=== PATIENT | male | born 1965 | race Caucasian/White ===

== ENCOUNTER 2018-11-18 10:39 | Inpatient (IN) ==
[2018-11-18] MEDS ORDERED: 0.9 % SODIUM CHLORIDE 1,000 ML IV ONE (10:47)
[2018-11-18] MEDS ORDERED: HYDROmorphone 2 MG/ML VIAL IV PRN (10:47)
[2018-11-18] MEDS ORDERED: ONDANSETRON 4 MG/2 ML VIAL IV ONE (10:47)
[2018-11-18 11:46] LABS: Basophils # (Auto) 0 K/mcL (0.0-0.3); Basophils % (Auto) 0.6 % (0.0-2.0); Eosinophils # (Auto) 0.3 K/mcL (0.0-0.7); Eosinophils % (Auto) 4.8 % (0.0-7.0); Granulocytes % (Auto) 48.6 % (38.0-78.0); Lymphocytes # (Auto) 2.3 K/mcL (1.5-4.8); Mean Cell Volume 85.4 fL (80.0-100.0); Mean Corpuscular HGB Conc 32.4 g/dL (31.0-36.0); Monocytes # (Auto) 0.6 K/mcL (0.1-0.9); Platelet Count 332 K/mcL (140-440); RBC 5.05 M/mcL (4.50-5.90); Red Cell Distribution Width 13.3 % (11.5-14.5)
--- NOTE | 2018-11-18 11:54 | Emergency Department Note ---
Lower Extremity Injury HPI - General Chief Complaint: Extremity Injury, Lower Stated Complaint: left toe pain Time Seen by Provider: 11/18/18 10:46 Source: patient Mode of arrival: ambulatory Limitations: no limitations - History of Present Illness HPI Narrative: 53-year-old male with left forefoot and great toe redness and swelling since he had surgery on it back in April 2018 or about [address] [place] did the surgery in [place]. Anyways he came in on 11/05/2018 and was evaluated by Dr. Holden-wound site was cultured which showed penicillin sensitive staph. CT scan at that time showed concern for osteomyelitis without abscess. He has been getting wound care by Dr. Monahan-but Dr. Monahan he does not think this is been getting better and so discussed the case with Dr. Valderrama, our sterilization specialist. Concerned that the joint is septic with osteomyelitis he sent him over for evaluation. Patient is not complaining of shortness of breath fever chills nausea vomiting diarrhea. He does have excessive pain redness and swelling. Patient has been using apple cider vinegar soaks with some mild relief. Patient is on Augmentin but does not think this is helping - Related Data Home Medications Medication Instructions Recorded Confirmed Ibuprofen [Motrin] 800 mg PO TIDP PRN 05/28/15 09/28/18 SUMAtriptan SUCCINATE [Imitrex] 50 mg PO PRN PRN 05/28/15 09/28/18 albuterol sulfate HFA 90 90 mcg INHALATION Q4H g 10/29/15 09/28/18 mcg/actuation aerosol inhaler diclofenac 1 % topical gel 2 g TOPICAL QID 10/29/15 09/28/18 ipratropium-albuterol 0.5 mg-3 3 ml INHALATION Q8H 10/29/15 09/28/18 mg(2.5 mg base)/3 mL nebulization soln polyethylene glycol 3350 17 17 g PO ONCE 10/29/15 09/28/18 gram/dose oral powder triamcinolone acetonide 0.1 % 1 applic TOPICAL QDAY 10/29/15 09/28/18 topical cream zolpidem 10 mg tablet 10 mg PO HS 10/29/15 09/28/18 bupropion HCl 75 mg tablet 75 mg PO ONCE tab 09/23/18 09/28/18 fluticasone 50 mcg/actuation 1 inh INHALATION Q12H 09/23/18 09/28/18 blister powder for inhalation hydrocodone 10 mg-acetaminophen 1 - 2 tab PO QID PRN tab 09/23/18 09/28/18 325 mg tablet nortriptyline 10 mg capsule 40 mg PO QHS cap 09/23/18 09/28/18 omeprazole 40 mg capsule,delayed 40 mg PO BID cap 09/23/18 09/28/18 release Previous Rx's Medication Instructions Recorded Amoxicillin 500 mg PO Q12 #40 tab 11/06/18 Allergies Allergy/AdvReac Type Severity Reaction Status Date / Time diphenhydramine Allergy Unknown Unknown Verified 11/18/18 10:42 [From Benadryl] egg Allergy Unknown Unknown Verified 11/18/18 10:42 gabapentin Allergy Unknown Unknown Verified 11/18/18 10:42 topiramate [From Topamax] Allergy Unknown Unknown Verified 11/18/18 10:42 pregabalin [From Lyrica] AdvReac Intermediate Confusion Verified 11/18/18 10:42 BANANAS Allergy Intermediate ITCHY Uncoded 09/23/18 09:32 THROAT Review of Systems All systems ED: reviewed and negative except as stated. Past Medical History - Past Medical History Attestation: Yes: The following information was validated with the patient. 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) VIVEK on CPAP (Chronic) Left anterior shoulder pain (Chronic) Migraine headache (Chronic) Fatty liver (Chronic) Elevated LFTs (Chronic) Eosinophilic esophagitis (Chronic) Allergic rhinitis due to animals (Chronic) Allergic rhinitis due to pollen (Chronic) Osteoarthritis (Chronic) Arthritis of hand (Chronic) Bone spur of right foot (Chronic) Os trigonum (Chronic) Hallux rigidus, acquired (Chronic) Other instability, left ankle (Chronic) 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) Anxiety (Chronic) Other specified conditions influencing health status (Chronic) Benign prostatic hyperplasia with lower urinary tract symptoms (Chronic) Chronic toe pain, left foot (Chronic) Spondylolisthesis, acquired (Chronic) Sciatica (Chronic) Persistent insomnia (Chronic) Anxiety disorder (Chronic) BPH (benign prostatic hypertrophy) with urinary obstruction (Chronic) Family history of diabetes mellitus (Chronic) Decrease in the ability to hear (Chronic) Herpes simplex (Resolved) Loss of teeth (Resolved) Other chest pain (Resolved) Other spondylosis with radiculopathy, lumbar region (Resolved) Severe persistent asthma (Resolved) Shortness of breath (Resolved) Skin lesion (Resolved) Dermatitis, atopic (Inactive) Diverticulosis (Inactive) Hemorrhoids, external (Inactive) LUQ abdominal pain (Inactive) Loss of teeth due to extraction (Inactive 08/14/14) Opioid abuse (Inactive) Opioid dependence (Inactive) Other jail (current) drug therapy (Inactive) Spondylolisthesis (Inactive) Ulcer of left foot (Inactive) Past Surgical History (Last Updated 09/29/18 @ 10:59 by Varsha Rueda) S/P foot surgery, left (Acute) History of hernia surgery (Chronic) History of toe surgery (Chronic ~2018) History of tonsillectomy and adenoidectomy (Chronic) History of umbilical hernia repair (Chronic) Medical history: Reports: other Psychiatric history: Reports: anxiety, depression Surgical history ED: Reports: orthopedic, other - Social History smoking status: Former smoker Alcohol use: Reports: None Drug use: Reports: none Physical Exam Overweight male no acute distress resting comfortably. Normocephalic atraumatic. Conjunctive are clear sclerae nonicteric. No nasal discharge or congestion. Oropharynx pink and moist. Neck is supple without lymphadenopathy thyromegaly. No carotid bruit. Heart is regular rate and rhythm no murmur appreciated. Lungs are clear to auscultation bilaterally without wheezes rales rhonchi or respiratory distress. Exam of the left foot compared to the right shows markedly edematous great toe and forefoot with scarring from surgery. There is erythema as well. It is partially bandaged. I did review the photographs that were showed to me by Dr. Monahan and therefore did not unwrap it further. He is alert oriented able to answer questions appropriately. Limitations: no limitations Course Vital Signs Temperature 97.8 F 11/18/18 10:40 Pulse Rate 77 11/18/18 10:40 Respiratory Rate 18 11/18/18 10:40 Blood Pressure 148/84 11/18/18 10:40 Pulse Oximetry (%) 98 11/18/18 10:40 Temperature 97.8 F 11/18/18 10:40 Pulse Rate 77 11/18/18 10:40 Respiratory Rate 18 11/18/18 10:40 Blood Pressure 148/84 11/18/18 10:40 Pulse Oximetry (%) 98 11/18/18 10:40 Extremity Injury, Lower - Lab Data Lab results reviewed: Yes I reviewed the patient's lab results. Result diagrams: 11/18/18 10:59 11/18/18 10:59 Lab Results 11/18/18 11/18/18 11/18/18 Range/Units 10:59 10:59 10:59 WBC 6.3 (4.5-11.0) K/mcL RBC 5.05 (4.50-5.90) M/mcL Hgb 14.0 (13.5-16.5) g/dL Hct 43.1 (41.0-55.0) % MCV 85.4 (80.0-100.0) fL MCH 27.7 (26.0-34.0) pg MCHC 32.4 (31.0-36.0) g/dL RDW 13.3 (11.5-14.5) % Plt Count 332 (140-440) K/mcL MPV 7.7 (7.4-10.4) fL Gran % 48.6 (38.0-78.0) % Lymph % (Auto) 37.0 (15.5-49.0) % Tucker % (Auto) 9.0 (1.0-12.0) % Eos % (Auto) 4.8 (0.0-7.0) % Baso % (Auto) 0.6 (0.0-2.0) % Gran # 3.1 (1.8-8.0) K/mcL Lymph # (Auto) 2.3 (1.5-4.8) K/mcL Tucker # (Auto) 0.6 (0.1-0.9) K/mcL Eos # (Auto) 0.3 (0.0-0.7) K/mcL Baso # (Auto) 0 (0.0-0.3) K/mcL VBG Lactic Acid 1.1 (0.5-2.0) mmol/L Sodium 138 (133-145) mmol/L Potassium 4.1 (3.3-5.1) mmol/L Chloride 102 (96-108) mmol/L Carbon Dioxide 26 (22-30) mmol/L Anion Gap 10.0 (8-16) BUN 15 (6-20) mg/dl Creatinine 1.0 (0.7-1.2) mg/dl GFR Calculation 85 Glucose 108 H (70-105) mg/dL Calcium 9.8 (8.6-10.4) mg/dl Total Bilirubin 0.3 (0.0-1.0) mg/dL AST 19 (0-37) U/l ALT 23 (0-40) U/l Alkaline Phosphatase 115 (39-117) U/L Total Protein 7.7 (5.9-8.4) gm/dL Albumin 4.4 (3.2-5.2) gm/dL Globulin 3.3 (2.2-3.7) gm/dL Albumin/Globulin Ratio 1.3 (1.0-2.3) Urine Color Urine Appearance Urine pH (5.0-9.0) Ur Specific Hudson (1.000-1.035) Urine Protein (NEG) mg/dL Urine Glucose (UA) (NEG) mg/dL Urine Ketones (NEG) mg/dL Urine Occult Blood (<0.03) mg/dL Urine Nitrate (NEG) Urine Bilirubin (NEG) mg/dL Urine Urobilinogen (NEG) mg/dL Ur Leukocyte Esterase (NEG) /uL Ur Culture Indicated? 11/18/18 Range/Units 11:39 WBC (4.5-11.0) K/mcL RBC (4.50-5.90) M/mcL Hgb (13.5-16.5) g/dL Hct (41.0-55.0) % MCV (80.0-100.0) fL MCH (26.0-34.0) pg MCHC (31.0-36.0) g/dL RDW (11.5-14.5) % Plt Count (140-440) K/mcL MPV (7.4-10.4) fL Gran % (38.0-78.0) % Lymph % (Auto) (15.5-49.0) % Tucker % (Auto) (1.0-12.0) % Eos % (Auto) (0.0-7.0) % Baso % (Auto) (0.0-2.0) % Gran # (1.8-8.0) K/mcL Lymph # (Auto) (1.5-4.8) K/mcL Tucker # (Auto) (0.1-0.9) K/mcL Eos # (Auto) (0.0-0.7) K/mcL Baso # (Auto) (0.0-0.3) K/mcL VBG Lactic Acid (0.5-2.0) mmol/L Sodium (133-145) mmol/L Potassium (3.3-5.1) mmol/L Chloride (96-108) mmol/L Carbon Dioxide (22-30) mmol/L Anion Gap (8-16) BUN (6-20) mg/dl Creatinine (0.7-1.2) mg/dl GFR Calculation Glucose (70-105) mg/dL Calcium (8.6-10.4) mg/dl Total Bilirubin (0.0-1.0) mg/dL AST (0-37) U/l ALT (0-40) U/l Alkaline Phosphatase (39-117) U/L Total Protein (5.9-8.4) gm/dL Albumin (3.2-5.2) gm/dL Globulin (2.2-3.7) gm/dL Albumin/Globulin Ratio (1.0-2.3) Urine Color Straw Urine Appearance Clear Urine pH 7.0 (5.0-9.0) Ur Specific Hudson 1.006 (1.000-1.035) Urine Protein Neg (NEG) mg/dL Urine Glucose (UA) Negative (NEG) mg/dL Urine Ketones Neg (NEG) mg/dL Urine Occult Blood Neg (<0.03) mg/dL Urine Nitrate Neg (NEG) Urine Bilirubin Neg (NEG) mg/dL Urine Urobilinogen Neg (NEG) mg/dL Ur Leukocyte Esterase Neg (NEG) /uL Ur Culture Indicated? No - Radiology Data Radiology results reviewed: Yes I reviewed the patient's radiology results. Reviewed CT scan of the left foot from 11/05 as noted above - EKG Data EKG attestation: Yes I reviewed and interpreted this EKG. EKG results narrative: EKG shows a rate of 78 sinus rhythm left axis deviation there is some artifactual anomalies but I do not see any ischemia Disposition Pt seen by FINGER GRIP MACHINE OPERATOR/PA only: No Clinical Impression: Septic arthritis of interphalangeal joint of toe of left foot Osteomyelitis Qualifiers: Osteomyelitis type: unspecified type Osteomyelitis location: foot Laterality: left Qualified Code(s): M86.9 - Osteomyelitis, unspecified Summary: After discussion with Dr. Monahan I ordered workup on patient.Per his direction I did not unwrap the foot further nor did I order antibiotics. Dr. Monahan would like to get more cultures in the operating room, as he is alrea dy completed a course of Augmentin which previous cultures show sensitivity to, and then have infectious disease follow along Laboratory and vital signs are normal. However CT scan shows septic arth ritis/osteomyelitis. I discussed the case with Dr. Piper, our hospitalist who agreed to accept the patient for further care and evaluation in the hospital. Specialists have already been contacted to get involved as noted above Disposition: Xfer As Inpt ([facility] [place] Condition: Fair Referrals: Elvis Marti ARNP [Primary Care Provider] -
[2018-11-18 11:57] LABS: Appearance,Urine CLEAR; Bilirubin,Urine NEG (NEG); Color,Urine STRAW; Glucose,Urine (UA) NEGATIVE (NEG); Leukocyte Esterase,Urine NEG /uL (NEG); Protein,Urine NEG (NEG); Specific Gravity,Urine 1.006 (1.000-1.035); Urine Blood NEG mg/dL (<0.03); Urobilinogen,Urine NEG (NEG)
[2018-11-18 12:13] LABS: ALT/SGPT 23 U/l (0-40); Albumin 4.4 gm/dL (3.2-5.2); Albumin/Globulin Ratio 1.3 (1.0-2.3); Alkaline Phosphatase 115 U/L (39-117); Blood Urea Nitrogen 15 mg/dl (6-20)
--- NOTE | 2018-11-18 14:00 | Internal Med History&Physical ---
Medical - H&P: HPI Patient information: Note initiated : 11/18/18 at 1:57 pm Service Date, if different from initiated Date: [] Patient: Juancarlos Kenney 53 y/o M admitted on for Lt Toe Pain. Chief Complaint: [] History of present illness: Mr. Kenney is a 53 year old M with history of trauma to the left to status post repair and hardware placement in April last year. Since the time of that surgery the patient notes she has had some trouble with that toe. He was seen in the emergency room on 05 November last month where he had presented with evidence of cellulitis, possible abscess, pain and swelling in the toe. Cultures sent from the fluid was MSSA staph. CT scan was done at that time which shows septic arthritis and acute osteomyelitis. Patient was being treated with oral antibiotics, By his assistant manager retail,Sourav Alcantara as per the note in the ED. Patient was later referred to the wound care clinic here at [facility]. Was seen by the physician and then referred to the emergency room for further evaluation. It seems that the patient's foot has progressively been getting worse swelling has worsened and there has been worsening, persistent pain, and therefore the patient was referred to the ED given that he has a history of CT showing septic arthritis. The patient denies any fever or chills, denies any headache chest pain shortness of breath he does have some shoulder pain on the left side, denies any nausea, has chronic bloating of his abdomen no diarrhea vomiting denies any blood in the urine, but does have increased frequency of urination, On presentation to the ED patient is afebrile, hemodynamically stable labs are all stable no white count no fever no evidence of any systemic infection All systems: reviewed and no additional remarkable complaints except as stated (As per HPI rest negative) Medical - H&P: PMH Medical history: Medical History (Last Updated 11/06/18 @ 01:02 by Ney Holden DO) Borderline diabetes mellitus (Chronic) Myocardial infarction (Chronic) Advanced COPD (Chronic) Morbid obesity with BMI of 40.0-44.9, adult (Chronic) Asthma (Chronic 08/18/12) GERD (gastroesophageal reflux disease) (Chronic) Chronic, continuous use of opioids (Chronic) assisted prescription opiate use (Chronic) VIVEK on CPAP (Chronic) Left anterior shoulder pain (Chronic) Migraine headache (Chronic) Fatty liver (Chronic) Elevated LFTs (Chronic) Eosinophilic esophagitis (Chronic) Allergic rhinitis due to animals (Chronic) Allergic rhinitis due to pollen (Chronic) Osteoarthritis (Chronic) Arthritis of hand (Chronic) Bone spur of right foot (Chronic) Os trigonum (Chronic) Hallux rigidus, acquired (Chronic) Other instability, left ankle (Chronic) 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) Anxiety (Chronic) Other specified conditions influencing health status (Chronic) Benign prostatic hyperplasia with lower urinary tract symptoms (Chronic) Chronic toe pain, left foot (Chronic) Spondylolisthesis, acquired (Chronic) Sciatica (Chronic) Persistent insomnia (Chronic) Anxiety disorder (Chronic) BPH (benign prostatic hypertrophy) with urinary obstruction (Chronic) Family history of diabetes mellitus (Chronic) Decrease in the ability to hear (Chronic) Herpes simplex (Resolved) Loss of teeth (Resolved) Other chest pain (Resolved) Other spondylosis with radiculopathy, lumbar region (Resolved) Severe persistent asthma (Resolved) Shortness of breath (Resolved) Skin lesion (Resolved) Dermatitis, atopic (Inactive) Diverticulosis (Inactive) Hemorrhoids, external (Inactive) LUQ abdominal pain (Inactive) Loss of teeth due to extraction (Inactive 08/14/14) Opioid abuse (Inactive) Opioid dependence (Inactive) Other half-way (current) drug therapy (Inactive) Spondylolisthesis (Inactive) Ulcer of left foot (Inactive) Surgical history: Past Surgical History (Last Updated 09/29/18 @ 10:59 by Varsha Rueda) S/P foot surgery, left (Acute) History of hernia surgery (Chronic) History of toe surgery (Chronic ~2017) History of tonsillectomy and adenoidectomy (Chronic) History of umbilical hernia repair (Chronic) Pertinent family history: Family History (Last Updated 09/29/18 @ 11:16 by Varsha Rueda) Mother Cancer Father Renal disease Grandmother Diabetes mellitus Other Stroke Medical - H&P: Meds Home Medications Medication Instructions Recorded Confirmed Type Ibuprofen [Motrin] 800 mg PO TIDP PRN 05/28/15 09/28/18 History SUMAtriptan SUCCINATE [Imitrex] 50 mg PO PRN PRN 05/28/15 09/28/18 History albuterol sulfate HFA 90 90 mcg INHALATION Q4H g 10/29/15 09/28/18 History mcg/actuation aerosol inhaler diclofenac 1 % topical gel 2 g TOPICAL QID 10/29/15 09/28/18 History ipratropium-albuterol 0.5 mg-3 3 ml INHALATION Q8H 10/29/15 09/28/18 History mg(2.5 mg base)/3 mL nebulization soln polyethylene glycol 3350 17 17 g PO ONCE 10/29/15 09/28/18 History gram/dose oral powder triamcinolone acetonide 0.1 % 1 applic TOPICAL QDAY 10/29/15 09/28/18 History topical cream zolpidem 10 mg tablet 10 mg PO HS 10/29/15 09/28/18 History bupropion HCl 75 mg tablet 75 mg PO ONCE tab 09/23/18 09/28/18 History fluticasone 50 mcg/actuation 1 inh INHALATION Q12H 09/23/18 09/28/18 History blister powder for inhalation hydrocodone 10 mg-acetaminophen 1 - 2 tab PO QID PRN tab 09/23/18 09/28/18 History 325 mg tablet nortriptyline 10 mg capsule 40 mg PO QHS cap 09/23/18 09/28/18 History omeprazole 40 mg capsule,delayed 40 mg PO BID cap 09/23/18 09/28/18 History release Amoxicillin 500 mg PO Q12 #40 tab 11/06/18 Rx Allergies Allergy/AdvReac Type Severity Reaction Status Date / Time diphenhydramine Allergy Unknown Unknown Verified 11/18/18 10:42 [From Benadryl] egg Allergy Unknown Unknown Verified 11/18/18 10:42 gabapentin Allergy Unknown Unknown Verified 11/18/18 10:42 topiramate [From Topamax] Allergy Unknown Unknown Verified 11/18/18 10:42 pregabalin [From Lyrica] AdvReac Intermediate Confusion Verified 11/18/18 10:42 BANANAS Allergy Intermediate ITCHY Uncoded 09/23/18 09:32 THROAT Medical - H&P: Exam - Constitutional Vitals: Temp Pulse Resp BP Pulse Ox 97.8 F 77 18 148/84 98 11/18/18 10:40 11/18/18 10:40 11/18/18 10:40 11/18/18 10:40 11/18/18 10:40 Exam: GENERAL: The patient is a well-developed, well-nourished in no apparent distress. Is alert and oriented x3. Morbidly obese gentleman VITAL SIGNS: Reviewed and as noted elsewhere. HEENT: Head is normocephalic and atraumatic. Extraocular muscles are intact. Pupils are equal, round, and reactive to light. Nares appeared normal. Mouth appears any without lesions. Mucous membranes are moist. NECK: Normal to inspection, Supple, No lymphadenopathy or thyromegaly. LUNGS: Air entry equal on both sides, no wheezing, crackles or rhonchi noted. No accessory muscles of respiration HEART: Regular rate and rhythm normal, S1 and S2 heard, no Gallop, S3 or Rub Noted, No Gross murmur heard. ABDOMEN: Soft, nontender, and nondistended. Positive bowel sounds. No hepatosplenomegaly was noted. EXTREMITIES: No cyanosis, clubbing, rash, lesions or edema. NEUROLOGIC: Cranial nerves II through XII are grossly intact. Motor and Sensory System Grossly Intact PSYCHIATRIC: Normal affect, Normal Mood. Appropriate Behavior. SKIN: No ulceration or wounds noted, No jaundice, No rash noted. Left toe-there is an area of skin bleb around 1 cm in diameter fluctuant in nature, the toe is swollen red tender to touch Medical - H&P: Reslt - Labs CBC & Chem 7: 11/18/18 10:59 11/18/18 10:59 Labs: Short CBC 11/18/18 Range/Units 10:59 WBC 6.3 (4.5-11.0) K/mcL Hgb 14.0 (13.5-16.5) g/dL Hct 43.1 (41.0-55.0) % Plt Count 332 (140-440) K/mcL BMP 11/18/18 10:59 Sodium 138 Potassium 4.1 Chloride 102 Carbon Dioxide 26 BUN 15 Creatinine 1.0 Glucose 108 H Calcium 9.8 Liver Function 11/18/18 Range/Units 10:59 Total Bilirubin 0.3 (0.0-1.0) mg/dL AST 19 (0-37) U/l ALT 23 (0-40) U/l Alkaline Phosphatase 115 (39-117) U/L Albumin 4.4 (3.2-5.2) gm/dL Urine 11/18/18 Range/Units 11:39 Urine Color Straw Urine Appearance Clear Urine pH 7.0 (5.0-9.0) Ur Specific [place] 1.006 (1.000-1.035) Urine Protein Neg (NEG) mg/dL Urine Glucose (UA) Negative (NEG) mg/dL Medical - H&P: A/P - Narrative A/P Narrative: A/P Acute Osteomyelitis with hardware - MSSA in wound culture -hold ABX -Podiatry/ Infectious disease consulted -will likely need surgical intervention. -send esr,crp, A1c VIVEK - CPAP Asthma -no wheeze on exam prn bronchodialotors Chr OA/Pain -Resume home medications DVT Hep sq diet regular Full code Social History - Social History marital status: single occupational status: disabled - Tobacco smoking status: Former smoker - Quit Details quit date: 09/14/85 - Alcohol alcohol intake frequency: does not drink - Substance use substance use type: does not use
[2018-11-18] MEDS ORDERED: ACETAMINOPHEN 325 MG TABLET PO PRN (14:47)
[2018-11-18] MEDS ORDERED: NALOXONE HCL 0.4 MG/ML VIAL IV PRN (14:47)
[2018-11-18] MEDS ORDERED: ONDANSETRON 4 MG/2 ML VIAL IV PRN (14:47)
[2018-11-18 15:20] LABS: C-Reactive Protein 1.4 mg/dl (0.0-0.8)
[2018-11-18 15:29] LABS: Estimated Average Glucose(eAG) 134 mg/dL; Hemoglobin A1C 6.3 % HGB (4.0-6.0)
--- NOTE | 2018-11-18 15:32 | Orthopedic Consult Note ---
History of Present Illness - [facility] Patient information: Note initiated : 11/18/18 at 3:30 pm Service Date, if different from initiated Date: [] Patient: Juancarlos Kenney 53 y/o M admitted on 11/18/18 for Lt Toe Pain. Chief Complaint: [Left great toe is sore] Consult date: 11/18/18 Requesting physician: Cameron Piper Consult reason: other (Infection of right great toe) History of present illness: In April 2018, Juancarlos underwent a fusion of the left great toe. Since then he has had swelling and fluid collection following the surgery. He was put on Augmentin 875 mg BID to control possible infection. The area has become grossly swollen with mild redness around the involved area. He has not had fever, chills, nausea or vomiting. There is moderate pain in the area as well. Review of Systems Constitutional: as per HPI Past History Past medical history: asthma Sleep Apnea migraines acid reflux Past surgical history: right great toe surgery 04/14/2018 umbilical hernia Tonsillectomy hiatial hernia Past family history: Father DM Past social history: Occasional drink Medications and Allergies Home Medications Medication Instructions Recorded Confirmed Type Ibuprofen [Motrin] 800 mg PO TIDP PRN 05/28/15 09/28/18 History SUMAtriptan SUCCINATE [Imitrex] 50 mg PO PRN PRN 05/28/15 09/28/18 History albuterol sulfate HFA 90 90 mcg INHALATION Q4H g 10/29/15 09/28/18 History mcg/actuation aerosol inhaler diclofenac 1 % topical gel 2 g TOPICAL QID 10/29/15 09/28/18 History ipratropium-albuterol 0.5 mg-3 3 ml INHALATION Q8H 10/29/15 09/28/18 History mg(2.5 mg base)/3 mL nebulization soln polyethylene glycol 3350 17 17 g PO ONCE 10/29/15 09/28/18 History gram/dose oral powder triamcinolone acetonide 0.1 % 1 applic TOPICAL QDAY 10/29/15 09/28/18 History topical cream zolpidem 10 mg tablet 10 mg PO HS 10/29/15 09/28/18 History bupropion HCl 75 mg tablet 75 mg PO ONCE tab 09/23/18 09/28/18 History fluticasone 50 mcg/actuation 1 inh INHALATION Q12H 09/23/18 09/28/18 History blister powder for inhalation hydrocodone 10 mg-acetaminophen 1 - 2 tab PO QID PRN tab 09/23/18 09/28/18 History 325 mg tablet nortriptyline 10 mg capsule 40 mg PO QHS cap 09/23/18 09/28/18 History omeprazole 40 mg capsule,delayed 40 mg PO BID cap 09/23/18 09/28/18 History release Amoxicillin 500 mg PO Q12 #40 tab 11/06/18 Rx Allergies Allergy/AdvReac Type Severity Reaction Status Date / Time diphenhydramine Allergy Unknown Unknown Verified 11/18/18 10:42 [From Benadryl] gabapentin Allergy Unknown Unknown Verified 11/18/18 10:42 topiramate [From Topamax] Allergy Unknown Unknown Verified 11/18/18 10:42 pregabalin [From Lyrica] AdvReac Intermediate Confusion Verified 11/18/18 10:42 BANANAS Allergy Intermediate ITCHY Uncoded 09/23/18 09:32 THROAT Physical Examination - Ankle & Foot left Ankle appearance: swelling, erythema, other Previous incision location: Heart: S1, S2, No murmor Lungs: clear to auscultation Assessment and Plan (1) Septic arthritis of interphalangeal joint of toe of left foot I&D with removal of hardware planned Status: Acute Priority: High
[2018-11-18] MEDS: 0.9 % SODIUM CHLORIDE 10 ML SYRINGE IV SCH ×2 (16:00→22:54)
--- NOTE | 2018-11-18 16:16 | Infectious Disease Consult ---
History of Present Illness Patient information: Note initiated : 11/18/18 at 4:07 pm Service Date, if different from initiated Date: [] Patient: Juancarlos Kenney 53 y/o M admitted on 11/18/18 for Lt Toe Pain. Chief Complaint: [] Consult date: 11/18/18 Requesting Physician: Cameron Piper Reason for Consult: Left foot septic arthritis and osteomyelitis Chief complaint: My left great toe hurts History of present illness: 53 year old man with past medical history pertinent for: Open reduction and internal fixation of left great toe last April Patient's postop course was complicated by pain which lasted until end of 2018. Patient has been noticing for the last 2 months or so that his left great toe had become more painful with some swelling and redness . 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 Aden] who prescribed him oral Augmentin . Patient has also been applying apple cider vinegar and soaking his foot in Epsom salt water. Due to lack of improvement, patient was seen in the ED on 11/05/18 with concerns for deeper skin and soft tissue infection. Superficial aspirate was cultured and it grew MSSA. A CT scan of foot was also done the same day and it showed erosive changes on both sides of left first interphalangeal joint space consistent with septic joint and osteomyelitis. Patient was subsequently referred to Dr. Luisito Valderrama [[facility]] for further evaluation and today after clinic visit, patient was sent to ED for admission. In the ED, patient was afebrile, heart rate of 77, blood pressure of 148/84. WBC was 6.3, ESR was 19, CRP was 1.4, creatinine was 1. Patient was admitted and he is supposed to undergo surgery this evening. At time of my visit, patient was relaxing. Confirmed the above history. He added that he did not had any fever, chills, foot wound contact with pets, sick contacts. Denies any antibiotic allergies. Review of Systems All systems PM: reviewed and no additional remarkable complaints except as stated Past History Past medical history: Borderline diabetes VIVEK BPH Past family history: Not pertinent to current presentation Past social history: Former smoker. Denies any alcohol or IV drug use currently Medications and Allergies Home Medications Medication Instructions Recorded Confirmed Type Ibuprofen [Motrin] 800 mg PO TIDP PRN 05/28/15 11/18/18 History SUMAtriptan SUCCINATE [Imitrex] 100 mg PO PRN PRN 05/28/15 11/18/18 History albuterol sulfate HFA 90 2 puff INHALATION Q4HP PRN g 10/29/15 11/18/18 History mcg/actuation aerosol inhaler diclofenac 1 % topical gel 2 g TOPICAL QIDP PRN 10/29/15 11/18/18 History ipratropium-albuterol 0.5 mg-3 3 ml INHALATION Q8HP PRN 10/29/15 11/18/18 History mg(2.5 mg base)/3 mL nebulization soln polyethylene glycol 3350 17 17 g PO BID 10/29/15 11/18/18 History gram/dose oral powder zolpidem 10 mg tablet 10 mg PO PRN PRN 10/29/15 11/18/18 History bupropion HCl 75 mg tablet 75 mg PO DAILY tab 09/23/18 11/18/18 History hydrocodone 10 mg-acetaminophen 1 - 2 tab PO QID PRN tab 09/23/18 11/18/18 History 325 mg tablet nortriptyline 10 mg capsule 40 mg PO QHS cap 09/23/18 11/18/18 History omeprazole 40 mg capsule,delayed 40 mg PO BID cap 09/23/18 11/18/18 History release Acyclovir [Zovirax] 1 tab PO BID 11/18/18 11/18/18 History Amoxicillin 500 mg PO TID 11/18/18 11/18/18 History Fluticasone Hfa 220Mcg [Flovent 1 puff INH BID 11/18/18 11/18/18 History Hfa 220Mcg] Fluticasone Hfa 220Mcg [Flovent 3 puff PO BID 11/18/18 11/18/18 History Hfa 220Mcg] Fluticasone/Salmeterol [Advair 1 puff INH BID 11/18/18 11/18/18 History 500-50 Diskus] metFORMIN 500 mg PO DAILY 11/18/18 11/18/18 History Allergies Allergy/AdvReac Type Severity Reaction Status Date / Time diphenhydramine Allergy Unknown impending Verified 11/18/18 15:42 [From Benadryl] doom gabapentin Allergy Unknown Unknown Verified 11/18/18 15:42 topiramate [From Topamax] Allergy Unknown Unknown Verified 11/18/18 15:42 grass pollen Allergy Other Verified 11/18/18 15:42 pregabalin [From Lyrica] AdvReac Intermediate Confusion Verified 11/18/18 10:42 BANANAS Allergy Intermediate ITCHY Uncoded 09/23/18 09:32 THROAT Physical Examination Vital signs: Temp Pulse Resp BP Pulse Ox 36.3 C 73 18 168/91 94 11/18/18 15:37 11/18/18 15:37 11/18/18 15:37 11/18/18 15:37 11/18/18 15:37 General appearance: no acute distress Eyes pulmonary: nonicteric ENT: oropharynx moist, other (no thrush) Auscultation: bilateral: clear Cardiovascular: regular rate and rhythm Gastrointestinal: normoactive bowel sounds, soft, non-tender, other Extremities: other (has swelling of left great toe with extension to proximla foot, with an area of prominence and fluctuance. +ve redness, tenderness, no drainage. Dorsalis pedis palpable) Results - Laboratory Findings CBC and BMP: 11/18/18 10:59 11/18/18 10:59 Abnormal lab findings: Abnormal Labs 11/18/18 11/18/18 11/18/18 10:59 10:59 10:59 ESR 19 H Glucose 108 H Hemoglobin A1c 6.3 H C-Reactive Protein 1.4 H Assessment and Plan - Narrative A/P Narrative: Assessment: #1 left great toe septic arthritis and osteomyelitis: Concerns that it would be MSSA based on previous cultures Awaiting surgical removal of hardware and debridement #2 no signs of sepsis Recommendations: Strongly agree with surgical removal of hardware and debridement for source control Continue to hold antibiotics until just before the surgery when he can get routine perioperative antibiotics [for example cefazolin] After surgery, he could be started on IV cefazolin 2 g every 8 hours and IV vancomycin per pharmacy assisted dosing Will de-escalate based on operative cultures Patient has good blood supply and has not received long courses of antibiotics in the past. Therefore will attempt healing with 4-6 weeks of antibiotics Will order a MRSA nasal PCR We will follow Scott Mancera MD Infectious disease
[2018-11-18] MEDS ORDERED: fentaNYL 100 MCG/2 ML VIAL IV ONE (16:40)
[2018-11-18] MEDS ORDERED: MIDAZOLAM 5 MG/5 ML VIAL IV ONE (16:40)
[2018-11-18] MEDS ORDERED: PROPOFOL 200 MG/20 ML VIAL IV ONE (16:40)
[2018-11-18] MEDS ORDERED: BUPIVACAINE 0.5% 50 ML VIAL IJ ONE (16:56)
[2018-11-18] MEDS ORDERED: LIDOCAINE 2% 20 ML VIAL SQ ONE (16:56)
[2018-11-18] MEDS ORDERED: VANCOMYCIN PER PHARMACY IV SCH (16:58)
[2018-11-18] MEDS ORDERED: VANCOMYCIN 1,500 MG in 0.9 % SODIUM CHLORIDE 500 ML IV ONE (16:58)
[2018-11-18] MEDS ORDERED: ZOLPIDEM 5 MG TABLET PO PRN (17:08)
[2018-11-18] MEDS ORDERED: ALBUTEROL SULFATE 1 PUFF INHALER INH PRN (17:08)
[2018-11-18] MEDS ORDERED: SUMAtriptan SUCCINATE 50 MG TABLET PO PRN (17:08)
[2018-11-18] MEDS ORDERED: KETOROLAC 30 MG/ML VIAL IV PRN (17:20)
[2018-11-18] MEDS ORDERED: IPRATROPIUM/ALBUTEROL 3 ML AMPUL.NEB NEB PRN (17:20)
[2018-11-18] MEDS ORDERED: fentaNYL 100 MCG/2 ML VIAL IV PRN (17:20)
--- NOTE | 2018-11-18 17:21 | Brief Operative Note ---
Date of procedure: 11/18/18 Pre-op diagnosis: Septic arthritis, infected hardware left foot Post-op diagnosis: same Procedure: Incision and drainage left foot, Removal of hardware left first metatarsal phalangeal joint Grafts/Implants: No Anesthesia: MAC, local Complications: none Surgeon: Luisito Valderrama Estimated blood loss (cc): 20 Specimens Removed/Pathology: other (2 x cultures, before and after lavage) Condition: stable Disposition: floor
[2018-11-18] MEDS ORDERED: LACTATED RINGERS 1,000 ML IV SCH (17:30)
[2018-11-18] MEDS: OMEPRAZOLE 20 MG CAPSULE PO SCH (18:09)
[2018-11-18] MEDS: oxyCODONE HCL 5 MG TABLET PO PRN ×2 (18:09→23:33)
[2018-11-18] MEDS: ceFAZolin 1 GM VIAL IV SCH ×2 (18:09→23:33)
[2018-11-18] MEDS: HYDROmorphone 2 MG/ML VIAL IV PRN ×2 (19:44→22:53)
[2018-11-18] MEDS: POLYETHYLENE GLYCOL 3350 17 GM PACKET PO SCH (20:47)
[2018-11-18] MEDS: HEPARIN 5,000 UNIT/ML VIAL SQ SCH (20:47)
[2018-11-18] MEDS: NORTRIPTYLINE 10 MG CAPSULE PO SCH (20:48)
[2018-11-18] MEDS: ACYCLOVIR 400 MG TABLET PO SCH (20:48)
[2018-11-18] MEDS: HYDROcodone/APAP 5/325MG TABLET PO PRN (20:48)
[2018-11-18] MEDS: FLUTICASONE HFA 220MCG INHALER INH SCH (20:49)
[2018-11-18] MEDS: FLUTICASONE HFA 220MCG INHALER PO SCH (20:49)
[2018-11-18] MEDS: FLUTICASONE/SALMETEROL 500/50 INHALER #14 INH SCH (20:58)
[2018-11-18] MEDS: ALBUTEROL SULFATE 2.5 MG/3 ML NEBULIZER NEB PRN (23:39)
[2018-11-19] MEDS: HYDROcodone/APAP 5/325MG TABLET PO PRN ×4 (04:42→20:23)
[2018-11-19] MEDS: HYDROmorphone 2 MG/ML VIAL IV PRN ×4 (05:36→21:52)
[2018-11-19] MEDS: ceFAZolin 1 GM VIAL IV SCH ×3 (05:37→23:00)
[2018-11-19] MEDS: 0.9 % SODIUM CHLORIDE 10 ML SYRINGE IV SCH ×3 (05:37→20:22)
--- NOTE | 2018-11-19 07:09 | Operative Note ---
DATE OF OPERATION: 11/18/2018 PREOPERATIVE DIAGNOSIS: Septic arthritis and infected hardware, left foot. POSTOPERATIVE DIAGNOSIS: Septic arthritis and infected hardware left foot. PROCEDURE: Incision and drainage, removal of hardware left foot. IMPLANTS: None. ANESTHESIA: MAC local. COMPLICATIONS: None. ESTIMATED BLOOD LOSS: 20 mL SPECIMENS: 2 x cultures before and after a minute pulse lavage. CONDITION: Stable. DISPOSITION: PACU. DESCRIPTION OF PROCEDURE: The patient was brought to the floor, placed in the operating room on the bed. Left lower extremity was scrubbed, prepped and draped in the usual aseptic manner. Mild sedation established by Anesthesia. The area was anesthetized with 20 mL of lidocaine and Marcaine in an ankle and ring block fashion around the first ray. There was noted to be red, hot, swollen foot with different pocketing areas. The foot was scrubbed, prepped and draped in the usual aseptic manner. Once anesthesia was established with a pain test, a full thickness incision was made with #10 blade. There was abundant purulent discharge which was sampled for culture. The plates and screws were removed without incident and the arthrodesis was seen to be stable. The area was irrigated with 3 liters of normal saline under pulse lavage. There was no more purulent discharge able to be identified in this area. The area was packed open with Betadine soaked gauze, 4 x 4s, Kerlix, Cody wrap, ABD pad, and Coban. The patient tolerated the procedure and anesthesia well and was transferred to postoperative care unit and will be transferred to the floor for intravenous antibiotic therapy. [id number] Job ID: [id number] Doc ID: [id number] Luisito Valderrama DPM
[2018-11-19] MEDS: OMEPRAZOLE 20 MG CAPSULE PO SCH ×2 (09:05→18:06)
[2018-11-19] MEDS: ACYCLOVIR 400 MG TABLET PO SCH ×2 (09:06→20:23)
[2018-11-19] MEDS: oxyCODONE HCL 5 MG TABLET PO PRN ×4 (09:06→23:17)
[2018-11-19] MEDS: metFORMIN 500 MG TABLET PO SCH (09:07)
[2018-11-19] MEDS: POLYETHYLENE GLYCOL 3350 17 GM PACKET PO SCH ×2 (09:07→20:21)
[2018-11-19] MEDS: FLUTICASONE HFA 220MCG INHALER INH SCH ×3 (09:10→23:01)
[2018-11-19] MEDS: FLUTICASONE HFA 220MCG INHALER PO SCH ×3 (09:10→23:18)
[2018-11-19] MEDS: FLUTICASONE/SALMETEROL 500/50 INHALER #14 INH SCH ×3 (09:10→22:59)
[2018-11-19] MEDS: HEPARIN 5,000 UNIT/ML VIAL SQ SCH ×2 (09:11→20:21)
[2018-11-19] MEDS: buPROPion 75 MG TABLET PO SCH (09:19)
[2018-11-19] MEDS: VANCOMYCIN 1,500 MG in 0.9 % SODIUM CHLORIDE 500 ML IV SCH ×2 (09:20→20:22)
--- NOTE | 2018-11-19 09:48 | Infectious Disease Prog Note ---
Subjective Patient information: Note initiated : 11/19/18 at 9:46 am Service Date, if different from initiated Date: [] Patient: Juancarlos Kenney 53 y/o M admitted on 11/18/18 for Lt Toe Pain. Chief Complaint: [] Interval history: Patient doing well. Underwent surgical incision and debridement, removal of all hardware from left great toe yesterday, operative cultures sent. Denies any fever, chills, nausea, vomiting or diarrhea. Endorses some foot pain. Discussed with him the plan to 4-6 weeks of antibiotics and discharge once sensitivities are available for operative cultures Objective Objective Narrative: ao x 3, in nad no thrush chest cta s1 s2 normal bs ++ , distended, soft Lt foot: wrapped under surgical dressing, no visible soakage pt able to do toe movements - Vital Signs Vital signs: Vital Signs Temp Pulse Pulse Pulse Resp BP BP 11/19/18 07:09 36.6 C 20 134/75 11/19/18 04:00 37.0 C 74 18 147/88 11/18/18 23:16 36.4 C 92 H 20 140/94 11/18/18 21:26 84 18 11/18/18 20:43 83 154/70 11/18/18 20:15 85 140/93 11/18/18 19:59 91 H 155/88 11/18/18 19:53 93 H 169/95 11/18/18 19:29 87 118/86 11/18/18 19:15 85 156/88 11/18/18 18:15 83 11/18/18 18:00 75 125/71 11/18/18 17:40 36.6 C 78 18 123/75 11/18/18 17:30 36.9 C 86 19 125/78 11/18/18 17:25 83 11 L 140/88 11/18/18 17:20 86 14 137/83 11/18/18 17:16 37.3 C H 85 16 145/87 11/18/18 15:37 36.3 C 73 18 168/91 11/18/18 14:42 36.6 C 77 18 148/84 11/18/18 10:40 36.6 C 77 18 148/84 Pulse Ox 11/19/18 07:09 96 11/19/18 04:00 95 11/18/18 23:16 95 11/18/18 21:26 94 11/18/18 20:43 11/18/18 20:15 11/18/18 19:59 94 11/18/18 19:53 94 11/18/18 19:29 94 11/18/18 19:15 98 11/18/18 18:15 96 11/18/18 18:00 94 11/18/18 17:40 95 11/18/18 17:30 96 11/18/18 17:25 96 11/18/18 17:20 95 11/18/18 17:16 94 11/18/18 15:37 94 11/18/18 14:42 98 11/18/18 10:40 98 Intake and Output 11/18/18 11/19/18 11/19/18 21:59 05:59 13:59 Intake Total 420 620 Output Total 1200 400 Balance -780 220 Intake: Oral 120 620 IV - Manual Only 300 Output: Void Amount 1200 400 Other: Urine Appearance Clear Clear Urine Color Bright Yellow Dark Yellow # Voids 1 Weight 122.697 kg Intake & Output: Intake & Output 11/18/18 11/19/18 11/19/18 21:59 05:59 13:59 Intake Total 420 620 Output Total 1200 400 Balance -780 220 Weight 122.697 kg Intake: Oral 120 620 IV - Manual Only 300 Output: Void Amount 1200 400 Other: Urine Appearance Clear Clear Urine Color Bright Yellow Dark Yellow # Voids 1 - Lab 11/18/18 10:59 11/18/18 10:59 Most recent lab results Calcium 9.8 mg/dl (8.6-10.4) 11/18/18 10:59 Medications Active Medications: Acetaminophen (Tylenol) 650 mg PO Q6HP PRN PRN Reason: PAIN/FEVER > 101 Hydrocodone Bitart/Acetaminophen ([place] 5/325mg) 1 - 2 tab PO Q4-6HP PRN PRN Reason: PAIN LEVEL 3-6 Last Admin: 11/19/18 04:42 Dose: 2 tab Documented by: MARIA M Admin: 11/18/18 20:48 Dose: 2 tab Documented by: MARIA M Acyclovir (Zovirax) 400 mg PO BID DELILAH Last Admin: 11/19/18 09:06 Dose: 400 mg Documented by: [email or web address] Admin: 11/18/18 20:48 Dose: 400 mg Documented by: MARIA M Albuterol Sulfate (Ventolin) 2.5 mg NEB Q2HP PRN PRN Reason: Shortness Of Breath Last Admin: 11/18/18 23:39 Dose: 2.5 mg Documented by: MARIA M Albuterol Sulfate (Ventolin) 2 puff INH Q4HP PRN PRN Reason: sob Bupropion HCl (Wellbutrin) 75 mg PO DAILY COUNT INCLUDES THE [facility] Last Admin: 11/19/18 09:19 Dose: 75 mg Documented by: NELLIE Cefazolin Sodium (Ancef) 2 gm IV Q8H COUNT INCLUDES THE [facility] Last Admin: 11/19/18 05:37 Dose: 2 gm Documented by: MARIA M Admin: 11/18/18 23:33 Dose: 2 gm Documented by: MARIA M Admin: 11/18/18 18:09 Dose: 2 gm Documented by: [email or web address] Fluticasone Propionate (Flovent Hfa 220mcg) 1 puff INH BID COUNT INCLUDES THE [facility] Last Admin: 11/19/18 09:10 Dose: Not Given Documented by: NELLIE Non-Admin Reason: Unavailable Admin: 11/18/18 20:49 Dose: Not Given Documented by: MARIA M Non-Admin Reason: Unavailable Fluticasone Propionate (Flovent Hfa 220mcg) 3 puff PO BID COUNT INCLUDES THE [facility] Last Admin: 11/19/18 09:10 Dose: Not Given Documented by: NELLIE Non-Admin Reason: Unavailable Admin: 11/18/18 20:49 Dose: Not Given Documented by: MARIA M Non-Admin Reason: Unavailable Heparin Sodium (Porcine) (Heparin) 5,000 unit SQ Q12 COUNT INCLUDES THE [facility] Last Admin: 11/19/18 09:11 Dose: 5,000 unit Documented by: [email or web address] Admin: 11/18/18 20:47 Dose: 5,000 unit Documented by: MARIA M Hydromorphone HCl (Dilaudid) 0.5 mg IV Q2HP PRN PRN Reason: PAIN LEVEL > 6 Last Admin: 11/19/18 05:36 Dose: 0.5 mg Documented by: MARIA M Admin: 11/18/18 22:53 Dose: 0.5 mg Documented by: MARIA M Admin: 11/18/18 19:44 Dose: 0.5 mg Documented by: MARIA M Vancomycin HCl 1,500 mg/ (Sodium Chloride) 500 mls @ 333.3 mls/hr IV Q12H COUNT INCLUDES THE [facility] Last Admin: 11/19/18 09:20 Dose: 333.3 mls/hr Documented by: NELLIE Metformin HCl (Glucophage) 500 mg PO QAMCC COUNT INCLUDES THE [facility] Last Admin: 11/19/18 09:07 Dose: 500 mg Documented by: NELLIE Naloxone HCl (Narcan) 0.1 mg IV Q2MIN PRN PRN Reason: Opiate Reversal Nortriptyline HCl (Pamelor) 40 mg PO QHS COUNT INCLUDES THE [facility] Last Admin: 11/18/18 20:48 Dose: 40 mg Documented by: MARIA M Omeprazole (Prilosec) 40 mg PO BIDAC COUNT INCLUDES THE [facility] Last Admin: 11/19/18 09:05 Dose: 40 mg Documented by: Admin: 11/18/18 18:09 Dose: 40 mg Documented by: [email or web address] Ondansetron HCl (Zofran) 4 mg IV Q6HP PRN PRN Reason: Nausea And Vomiting Oxycodone HCl (Roxicodone) 5 mg PO Q4HP PRN PRN Reason: PAIN LEVEL 3-6 Last Admin: 11/19/18 09:06 Dose: 5 mg Documented by: Admin: 11/18/18 23:33 Dose: 5 mg Documented by: MARIA M Admin: 11/18/18 18:09 Dose: 5 mg Documented by: [email or web address] Pneumococcal Polyvalent Vaccine (Pneumovax 23) 0.5 ml IM .ONCE ONE Stop: 11/19/18 10:01 Polyethylene Glycol (Miralax) 17 gm PO BID COUNT INCLUDES THE [facility] Last Admin: 11/19/18 09:07 Dose: 17 gm Documented by: Admin: 11/18/18 20:47 Dose: 17 gm Documented by: MARIA M Fluticasone/Salmeterol (Advair 500-50 Diskus) 1 puff INH BID COUNT INCLUDES THE [facility] Last Admin: 11/19/18 09:10 Dose: Not Given Documented by: NELLIE Non-Admin Reason: Unavailable Admin: 11/18/18 20:58 Dose: Not Given Documented by: MARIA M Non-Admin Reason: Unavailable Sodium Chloride (Saline Flush) 10 ml IV Q8 COUNT INCLUDES THE [facility] Last Admin: 11/19/18 05:37 Dose: 10 ml Documented by: MARIA M Admin: 11/18/18 22:54 Dose: 10 ml Documented by: MARIA M Admin: 11/18/18 16:00 Dose: Not Given Documented by: [email or web address] Non-Admin Reason: Not In Room Sumatriptan Succinate (Imitrex) 100 mg PO PRN PRN PRN Reason: Pain Vancomycin HCl (Vancomycin Per Pharmacy) 1 order IV UD DELILAH Zolpidem Tartrate (Ambien) 10 mg PO HSP PRN PRN Reason: Insomnia Assessment and Plan - Narrative A/P Narrative: Assessment: #1 left great toe septic arthritis and osteomyelitis: Concerns that it would be MSSA based on previous cultures s/p surgical removal of hardware and debridement, POD 1 - operative Cx pending: GS was negative #2 no signs of sepsis Recommendations: Continue IV cefazolin 2 g every 8 hours and IV vancomycin per pharmacy assisted dosing Will de-escalate based on operative cultures Patient has good blood supply and has not received long courses of antibiotics in the past. Therefore will attempt healing with 4-6 weeks of antibiotics will addend once sensitivities are available. Scott Mancera MD Infectious disease
[2018-11-19] MEDS ORDERED: PNEUMOCOCCAL 23-VAL P-SAC VAC 0.5 ML SYRINGE IM ONE (10:00)
[2018-11-19] MEDS: ALBUTEROL SULFATE 2.5 MG/3 ML NEBULIZER NEB PRN ×3 (10:18→18:43)
--- NOTE | 2018-11-19 10:28 | Orthopedic Progress Note ---
Subjective Patient information: Note initiated : 11/19/18 at 10:25 am Service Date, if different from initiated Date: [] Patient: Juancarlos Kenney 53 y/o M admitted on 11/18/18 for Lt Toe Pain. Chief Complaint: [left foot I&D] Principal diagnosis: Cellulitis left foot Interval history: No fever last night. He didn't sleep well due to the mask for his sleep apnea. He doesn't have much pain to the foot. He has been taking it easy on the foot. No bleeding through the dressings. Pertinent ROS: No fever, chills nausea or vomiting Objective Vital signs: Vital Signs Temp Pulse Pulse Pulse Resp BP BP 11/19/18 10:18 68 16 11/19/18 07:09 98 F 20 134/75 11/19/18 04:00 98.6 F 74 18 147/88 11/18/18 23:16 97.6 F 92 H 20 140/94 11/18/18 21:26 84 18 11/18/18 20:43 83 154/70 11/18/18 20:15 85 140/93 11/18/18 19:59 91 H 155/88 11/18/18 19:53 93 H 169/95 11/18/18 19:29 87 118/86 11/18/18 19:15 85 156/88 11/18/18 18:15 83 11/18/18 18:00 75 125/71 11/18/18 17:40 97.9 F 78 18 123/75 11/18/18 17:30 98.5 F 86 19 125/78 11/18/18 17:25 83 11 L 140/88 11/18/18 17:20 86 14 137/83 11/18/18 17:16 99.2 F H 85 16 145/87 11/18/18 15:37 97.3 F 73 18 168/91 11/18/18 14:42 97.8 F 77 18 148/84 11/18/18 10:40 97.8 F 77 18 148/84 Pulse Ox 11/19/18 10:18 11/19/18 07:09 96 11/19/18 04:00 95 11/18/18 23:16 95 11/18/18 21:26 94 11/18/18 20:43 11/18/18 20:15 11/18/18 19:59 94 11/18/18 19:53 94 11/18/18 19:29 94 11/18/18 19:15 98 11/18/18 18:15 96 11/18/18 18:00 94 11/18/18 17:40 95 11/18/18 17:30 96 11/18/18 17:25 96 11/18/18 17:20 95 11/18/18 17:16 94 11/18/18 15:37 94 11/18/18 14:42 98 11/18/18 10:40 98 Intake and Output 11/18/18 11/19/18 11/19/18 21:59 05:59 13:59 Intake Total 420 620 Output Total 1200 400 Balance -780 220 Intake: Oral 120 620 IV - Manual Only 300 Output: Void Amount 1200 400 Other: Urine Appearance Clear Clear Urine Color Bright Yellow Dark Yellow # Voids 1 Weight 270 lb 8 oz Intake & Output: Intake & Output 11/18/18 11/19/18 11/19/18 21:59 05:59 13:59 Intake Total 420 620 Output Total 1200 400 Balance -780 220 Weight 270 lb 8 oz Intake: Oral 120 620 IV - Manual Only 300 Output: Void Amount 1200 400 Other: Urine Appearance Clear Clear Urine Color Bright Yellow Dark Yellow # Voids 1 Dressing: Yes clean, Yes dry, Yes intact - Labs CBC & BMP: 11/18/18 10:59 11/18/18 10:59 Labs: 11/18/18 10:59 Hgb 14.0 Hct 43.1 Assessment and Plan (1) Septic arthritis of interphalangeal joint of toe of left foot Status: Acute Priority: High Comment: Would vac to close once discharged in clinic. [facility]
--- NOTE | 2018-11-19 13:29 | Internal Med Progress Note ---
Medical - PN: Subj Patient information: Note initiated : 11/19/18 at 1:18 pm Service Date, if different from initiated Date: [] Patient: Juancarlos Kenney 53 y/o M admitted on 11/18/18 for Lt Toe Pain. Chief Complaint: [] Interval history: Mr. Kenney is a 53 year old M with history of trauma to the left to status post repair and hardware placement in April last year. Since the time of that surgery the patient notes she has had some trouble with that toe. He was seen in the emergency room on 05 November last month where he had presented with evidence of cellulitis, possible abscess, pain and swelling in the toe. Cultures sent from the fluid was MSSA staph. CT scan was done at that time which shows septic arthritis and acute osteomyelitis. Patient was being treated with oral antibiotics, By his merchandising manager,Sourav Alcantara as per the note in the ED. Patient was later referred to the wound care clinic here at [facility]. Was seen by the physician and then referred to the emergency room for further evaluation. It seems that the patient's foot has progressively been getting worse swelling has worsened and there has been worsening, persistent pain, and therefore the patient was referred to the ED given that he has a history of CT showing septic arthritis. The patient denies any fever or chills, denies any headache chest pain shortness of breath he does have some shoulder pain on the left side, denies any nausea, has chronic bloating of his abdomen no diarrhea vomiting denies any blood in the urine, but does have increased frequency of urination, On presentation to the ED patient is afebrile, hemodynamically stable labs are all stable no white count no fever no evidence of any systemic infection 11/19 Pt seen examined no acute issues reported microbiology pending pt has low esr and crp s/p surgery day 1 awaiting ID and Podiatry clearance for discharge. Pertinent ROS: Denies headache, dizziness Denies chest pain, palpitations Denies cough or shortness of breath Denies abdominal pain, nausea or vomiting. - Constitutional Vitals: Vital Signs Temp Pulse Resp BP Pulse Ox 99.1 F H 68 20 142/67 92 11/19/18 12:00 11/19/18 10:18 11/19/18 12:00 11/19/18 12:00 11/19/18 12:00 Period Temp Pulse Resp BP Sys/Brewster Pulse Ox Last 24 Hr 97.3 F-99.2 F 68-93 11-20 118-169/67-95 92-98 Intake and Output 11/18/18 11/19/18 11/19/18 21:59 05:59 13:59 Intake Total 420 620 500 Output Total 1200 400 Balance -780 220 500 Weight 270 lb 8 oz 270 lb 8 oz Patient Weight 11/20/18 05:59 Weight 270 lb 8 oz Intake & Output: Intake & Output 11/18/18 11/19/18 11/19/18 21:59 05:59 13:59 Intake Total 420 620 500 Output Total 1200 400 Balance -780 220 500 Weight 270 lb 8 oz 270 lb 8 oz Intake: IV 500 Vancomycin 1,500 mg In Sodium 500 Chloride 0.9% 500 ml @ 333.3 mls/hr IV Q12H [facility] Rx#: [id number] Oral 120 620 IV - Manual Only 300 Output: Void Amount 1200 400 Other: Urine Appearance Clear Clear Urine Color Bright Yellow Dark Yellow # Voids 1 Exam: Constitutional; Afebrile, cooperative, alert, not in distress. Eyes- No icterus, , No periorbital swelling Ears- Ext ear normal, hearing normal to conversation. Neck- Midline trachea, supple Respiratory system: Air Entry equal on both sides, No crackles or wheezing, no rhonchi. CVS- Rate rhythm regular, S1,S2 heard, no gallop, no rub. Abdomen- Soft nontender abdomen, no organomegaly, no tenderness, no guarding or rigidity, ROVING COURT REPORTER- AOOx3, moving all extremities, no gross focal deficit noted. Medical - PN: Obj Da - Labs CBC & Chem 7: 11/18/18 10:59 11/18/18 10:59 Labs: Abnormal Lab Results 11/18/18 11/18/18 11/18/18 10:59 10:59 10:59 ESR 19 H Glucose 108 H Hemoglobin A1c 6.3 H C-Reactive Protein 1.4 H Meds: Medications Acetaminophen (Tylenol) 650 mg PO Q6HP PRN PRN Reason: PAIN/FEVER > 101 Hydrocodone Bitart/Acetaminophen ([place] 5/325mg) 1 - 2 tab PO Q4-6HP PRN PRN Reason: PAIN LEVEL 3-6 Last Admin: 11/19/18 10:12 Dose: 2 tab Documented by: Acyclovir (Zovirax) 400 mg PO BID [facility] Last Admin: 11/19/18 09:06 Dose: 400 mg Documented by: Albuterol Sulfate (Ventolin) 2.5 mg NEB Q2HP PRN PRN Reason: Shortness Of Breath Last Admin: 11/19/18 10:18 Dose: 2.5 mg Documented by: Albuterol Sulfate (Ventolin) 2 puff INH Q4HP PRN PRN Reason: sob Bupropion HCl (Wellbutrin) 75 mg PO DAILY [facility] Last Admin: 11/19/18 09:19 Dose: 75 mg Documented by: Cefazolin Sodium (Ancef) 2 gm IV Q8H [facility] Last Admin: 11/19/18 05:37 Dose: 2 gm Documented by: Fluticasone Propionate (Flovent Hfa 220mcg) 1 puff INH BID [facility] Last Admin: 11/19/18 09:10 Dose: Not Given Documented by: Fluticasone Propionate (Flovent Hfa 220mcg) 3 puff PO BID [facility] Last Admin: 11/19/18 09:10 Dose: Not Given Documented by: Heparin Sodium (Porcine) (Heparin) 5,000 unit SQ Q12 [facility] Last Admin: 11/19/18 09:11 Dose: 5,000 unit Documented by: Hydromorphone HCl (Dilaudid) 0.5 mg IV Q2HP PRN PRN Reason: PAIN LEVEL > 6 Last Admin: 11/19/18 11:44 Dose: 0.5 mg Documented by: Vancomycin HCl 1,500 mg/ (Sodium Chloride) 500 mls @ 333.3 mls/hr IV Q12H [facility] Last Infusion: 11/19/18 11:33 Dose: Infused Documented by: Metformin HCl (Glucophage) 500 mg PO QAMCC [facility] Last Admin: 11/19/18 09:07 Dose: 500 mg Documented by: Naloxone HCl (Narcan) 0.1 mg IV Q2MIN PRN PRN Reason: Opiate Reversal Nortriptyline HCl (Pamelor) 40 mg PO QHS [facility] Last Admin: 11/18/18 20:48 Dose: 40 mg Documented by: Omeprazole (Prilosec) 40 mg PO BIDAC [facility] Last Admin: 11/19/18 09:05 Dose: 40 mg Documented by: Ondansetron HCl (Zofran) 4 mg IV Q6HP PRN PRN Reason: Nausea And Vomiting Oxycodone HCl (Roxicodone) 5 mg PO Q4HP PRN PRN Reason: PAIN LEVEL 3-6 Last Admin: 11/19/18 09:06 Dose: 5 mg Documented by: Polyethylene Glycol (Miralax) 17 gm PO BID [facility] Last Admin: 11/19/18 09:07 Dose: 17 gm Documented by: Fluticasone/Salmeterol (Advair 500-50 Diskus) 1 puff INH BID [facility] Last Admin: 11/19/18 09:10 Dose: Not Given Documented by: Sodium Chloride (Saline Flush) 10 ml IV Q8 [facility] Last Admin: 11/19/18 05:37 Dose: 10 ml Documented by: Sumatriptan Succinate (Imitrex) 100 mg PO PRN PRN PRN Reason: Pain Vancomycin HCl (Vancomycin Per Pharmacy) 1 order IV UD [facility] Zolpidem Tartrate (Ambien) 10 mg PO HSP PRN PRN Reason: Insomnia Medical - PN: A/P - Time Spent With Patient Total time spent is greater than 50% in coordination of care (as documented) at patient's floor/unit and/or counseling patient: - Narrative A/P Narrative: A/P Acute Osteomyelitis with hardware - MSSA in wound culture -vanco and cefazolin per ID -wound care per podiatry -d/c once cleared by them VIVEK - CPAP -issues with the mask, advised to bring his home device if possible. Asthma -no wheeze on exam prn bronchodilators Chr OA/Pain -Resume home medications DVT Hep sq diet regular Full code Medical - PN: Qual - VTE Deep Vein Thrombosis/Pulmonary Embolism Present on Admission: No
[2018-11-19] MEDS: NORTRIPTYLINE 10 MG CAPSULE PO SCH (20:23)
[2018-11-20] MEDS: HYDROcodone/APAP 5/325MG TABLET PO PRN ×5 (03:50→22:08)
[2018-11-20] MEDS: HYDROmorphone 2 MG/ML VIAL IV PRN ×5 (03:50→22:23)
[2018-11-20] MEDS: ceFAZolin 1 GM VIAL IV SCH ×3 (05:58→22:09)
[2018-11-20] MEDS: 0.9 % SODIUM CHLORIDE 10 ML SYRINGE IV SCH ×4 (05:58→22:10)
[2018-11-20] MEDS: metFORMIN 500 MG TABLET PO SCH (08:00)
[2018-11-20] MEDS: OMEPRAZOLE 20 MG CAPSULE PO SCH ×2 (08:00→18:02)
[2018-11-20] MEDS ORDERED: VANCOMYCIN 2,000 MG in 0.9 % SODIUM CHLORIDE 500 ML IV SCH (09:00)
[2018-11-20] MEDS: ACYCLOVIR 400 MG TABLET PO SCH ×2 (09:23→20:42)
[2018-11-20] MEDS: POLYETHYLENE GLYCOL 3350 17 GM PACKET PO SCH ×2 (09:24→20:42)
[2018-11-20] MEDS: HEPARIN 5,000 UNIT/ML VIAL SQ SCH ×2 (09:24→20:42)
[2018-11-20] MEDS: buPROPion 75 MG TABLET PO SCH (09:24)
[2018-11-20] MEDS: FLUTICASONE/SALMETEROL 500/50 INHALER #14 INH SCH ×2 (09:41→20:43)
[2018-11-20] MEDS: FLUTICASONE HFA 220MCG INHALER PO SCH ×2 (09:42→20:43)
[2018-11-20] MEDS: FLUTICASONE HFA 220MCG INHALER INH SCH ×2 (09:42→20:43)
[2018-11-20] MEDS ORDERED: 0.9 % SODIUM CHLORIDE 10 ML SYRINGE IV PRN (09:56)
[2018-11-20] MEDS: VANCOMYCIN 1,500 MG in 0.9 % SODIUM CHLORIDE 500 ML IV SCH (10:14)
--- NOTE | 2018-11-20 12:34 | Internal Med Progress Note ---
Medical - PN: Subj Patient information: Note initiated : 11/20/18 at 12:19 pm Service Date, if different from initiated Date: [] Patient: Juancarlos Kenney a 53 y/o M admitted on 11/18/18 for Lt Toe Pain. Chief Complaint: [] Interval history: Mr. Kenney is a 53 year old M with history of trauma to the left to status post repair and hardware placement in April last year. Since the time of that surgery the patient notes she has had some trouble with that toe. He was seen in the emergency room on 05 November last month where he had presented with evidence of cellulitis, possible abscess, pain and swelling in the toe. Cultures sent from the fluid was MSSA staph. CT scan was done at that time which shows septic arthritis and acute osteomyelitis. Patient was being treated with oral antibiotics, By his ride attendant,Sourav Alcantara as per the note in the ED. Patient was later referred to the [facility] care clinic [facility]. Was seen by the physician and then referred to the emergency room for further evaluation. It seems that the patient's foot has progressively been getting worse swelling has worsened and there has been worsening, persistent pain, and therefore the patient was referred to the ED given that he has a history of CT showing septic arthritis. The patient denies any fever or chills, denies any headache chest pain shortness of breath he does have some shoulder pain on the left side, denies any nausea, has chronic bloating of his abdomen no diarrhea vomiting denies any blood in the urine, but does have increased frequency of urination, On presentation to the ED patient is afebrile, hemodynamically stable labs are all stable no white count no fever no evidence of any systemic infection 11/19 Pt seen examined no acute issues reported microbiology pending pt has low esr and crp s/p surgery day 1 awaiting ID and Podiatry clearance for discharge. 11/20 pt seen examined, no acute issues, got his home cpap slept well Cleared for discharge from ID and podiatry Plan to PICC today, anticipate d/c tomorrow pt not sure if he can use a CADD Pump, will have pharmacy review with him. alternative is rochepin as per ID Pertinent ROS: Denies headache, dizziness Denies chest pain, palpitations Denies cough or shortness of breath Denies abdominal pain, nausea or vomiting. - Constitutional Vitals: Vital Signs Temp Pulse Resp BP Pulse Ox 97.9 F 82 16 136/75 94 11/20/18 12:00 11/20/18 03:55 11/20/18 12:00 11/20/18 12:00 11/20/18 12:00 Period Temp Pulse Resp BP Sys/Brewster Pulse Ox Last 24 Hr 97.5 F-98.8 F 77-87 14-20 132-166/75-93 92-98 Intake and Output 11/19/18 11/20/18 11/20/18 21:59 05:59 13:59 Intake Total 1280 800 800 Output Total 1350 1200 1250 Balance -70 -400 -450 Weight 275 lb 8 oz Intake & Output: Intake & Output 11/19/18 11/20/18 11/20/18 21:59 05:59 13:59 Intake Total 1280 800 800 Output Total 1350 1200 1250 Balance -70 -400 -450 Weight 275 lb 8 oz Intake: Oral 1280 800 800 Output: Void Amount 1350 1200 1250 # of times incontinent of urine 0 0 Other: Meal Dinner Percent of Meal Consumed 100% Feeding Ability Independent Urine Appearance Clear Clear Clear Urine Color Bright Yellow Bright Yellow Bright Yellow Urine Odor Normal Normal Stool Size Large Stool Consistency Formed # Voids 1 2 # Bowel Movements 1 Exam: Constitutional; Afebrile, cooperative, alert, not in distress. Respiratory system: Air Entry equal on both sides, No crackles or wheezing, no rhonchi. CVS- Rate rhythm regular, S1,S2 heard, no gallop, no rub. Abdomen- Soft nontender abdomen, no organomegaly, no tenderness, no guarding or rigidity, TEXTILE CHEMIST- AOOx3, moving all extremities, no gross focal deficit noted. Medical - PN: Obj Da - Labs CBC & Chem 7: 11/18/18 10:59 11/18/18 10:59 Labs: Abnormal Lab Results 11/18/18 11/18/18 11/18/18 10:59 10:59 10:59 ESR 19 H Glucose 108 H Hemoglobin A1c 6.3 H C-Reactive Protein 1.4 H Meds: Medications Acetaminophen (Tylenol) 650 mg PO Q6HP PRN PRN Reason: PAIN/FEVER > 101 Hydrocodone Bitart/Acetaminophen ([place] 5/325mg) 1 - 2 tab PO Q4-6HP PRN PRN Reason: PAIN LEVEL 3-6 Last Admin: 11/20/18 09:24 Dose: 2 tab Documented by: Acyclovir (Zovirax) 400 mg PO BID [facility] Last Admin: 11/20/18 09:23 Dose: 400 mg Documented by: Albuterol Sulfate (Ventolin) 2.5 mg NEB Q2HP PRN PRN Reason: Shortness Of Breath Last Admin: 11/19/18 18:43 Dose: 2.5 mg Documented by: Albuterol Sulfate (Ventolin) 2 puff INH Q4HP PRN PRN Reason: sob Last Admin: 11/19/18 20:38 Dose: 1 puff Documented by: Bupropion HCl (Wellbutrin) 75 mg PO DAILY [facility] Last Admin: 11/20/18 09:24 Dose: 75 mg Documented by: Cefazolin Sodium (Ancef) 2 gm IV Q8H [facility] Last Admin: 11/20/18 05:58 Dose: 2 gm Documented by: Fluticasone Propionate (Flovent Hfa 220mcg) 1 puff INH BID [facility] Last Admin: 11/20/18 09:42 Dose: Not Given Documented by: Fluticasone Propionate (Flovent Hfa 220mcg) 3 puff PO BID [facility] Last Admin: 11/20/18 09:42 Dose: Not Given Documented by: Heparin Sodium (Porcine) (Heparin) 5,000 unit SQ Q12 [facility] Last Admin: 11/20/18 09:24 Dose: 5,000 unit Documented by: Heparin Sodium (Porcine) (Heparin Flush) 2 ml IV Q12 [facility] Hydromorphone HCl (Dilaudid) 1 - 2 mg IV Q2HP PRN PRN Reason: PAIN LEVEL > 6 Metformin HCl (Glucophage) 500 mg PO QAMCC [facility] Last Admin: 11/20/18 08:00 Dose: 500 mg Documented by: Naloxone HCl (Narcan) 0.1 mg IV Q2MIN PRN PRN Reason: Opiate Reversal Nortriptyline HCl (Pamelor) 40 mg PO QHS [facility] Last Admin: 11/19/18 20:23 Dose: 40 mg Documented by: Omeprazole (Prilosec) 40 mg PO BIDAC [facility] Last Admin: 11/20/18 08:00 Dose: 40 mg Documented by: Ondansetron HCl (Zofran) 4 mg IV Q6HP PRN PRN Reason: Nausea And Vomiting Oxycodone HCl (Roxicodone) 5 mg PO Q4HP PRN PRN Reason: PAIN LEVEL 3-6 Last Admin: 11/19/18 23:17 Dose: 5 mg Documented by: Polyethylene Glycol (Miralax) 17 gm PO BID [facility] Last Admin: 11/20/18 09:24 Dose: 17 gm Documented by: Fluticasone/Salmeterol (Advair 500-50 Diskus) 1 puff INH BID [facility] Last Admin: 11/20/18 09:41 Dose: 1 puff Documented by: Sodium Chloride (Saline Flush) 10 ml IV Q8 [facility] Last Admin: 11/20/18 05:58 Dose: 10 ml Documented by: Sodium Chloride (Saline Flush) 10 ml IV UD PRN PRN Reason: FLUSH Sodium Chloride (Saline Flush) 10 ml IV Q12 [facility] Sumatriptan Succinate (Imitrex) 100 mg PO PRN PRN PRN Reason: Pain Zolpidem Tartrate (Ambien) 10 mg PO HSP PRN PRN Reason: Insomnia Medical - PN: A/P - Time Spent With Patient Total time spent is greater than 50% in coordination of care (as documented) at patient's floor/unit and/or counseling patient: - Narrative A/P Narrative: A/P Acute Osteomyelitis with hardware -mssa in culture -d/c vanco -iv anceph for now -picc planned, -d/c in AM with either anceph or rocephin, based on feasibility. VIVEK - CPAP -doing well with home cpap. Asthma -no wheeze on exam prn bronchodilators Chr OA/Pain -Resume home medications DVT Hep sq diet regular Full code Medical - PN: Qual - VTE Deep Vein Thrombosis/Pulmonary Embolism Present on Admission: No
[2018-11-20] MEDS: oxyCODONE HCL 5 MG TABLET PO PRN ×2 (14:44→19:32)
[2018-11-20] MEDS: NORTRIPTYLINE 10 MG CAPSULE PO SCH (20:42)
[2018-11-21] MEDS: HYDROcodone/APAP 5/325MG TABLET PO PRN ×3 (04:15→14:08)
[2018-11-21] MEDS: HYDROmorphone 2 MG/ML VIAL IV PRN (04:16)
[2018-11-21] MEDS: ceFAZolin 1 GM VIAL IV SCH (06:03)
[2018-11-21] MEDS: metFORMIN 500 MG TABLET PO SCH (08:21)
[2018-11-21] MEDS: OMEPRAZOLE 20 MG CAPSULE PO SCH (08:21)
--- NOTE | 2018-11-21 09:16 | XRay Report ---
HISTORY: PICC line insertion FINDINGS: A left-sided PICC line has been inserted. The tip is in the superior vena cava. There is no pneumothorax, widening of the mediastinum or pleural effusion. The heart is mildly enlarged but magnified by portable technique. There is no congestive heart failure or pulmonary infiltrate. IMPRESSION: Well-positioned PICC line. Nursing was called with the results Interpreted and Authenticated by: Eddie Proctor 11/21/18
[2018-11-21] MEDS: ACYCLOVIR 400 MG TABLET PO SCH (10:00)
[2018-11-21] MEDS: FLUTICASONE/SALMETEROL 500/50 INHALER #14 INH SCH (10:01)
[2018-11-21] MEDS: HEPARIN 5,000 UNIT/ML VIAL SQ SCH (10:01)
[2018-11-21] MEDS: buPROPion 75 MG TABLET PO SCH (10:01)
[2018-11-21] MEDS: FLUTICASONE HFA 220MCG INHALER INH SCH (10:02)
[2018-11-21] MEDS: FLUTICASONE HFA 220MCG INHALER PO SCH (10:02)
[2018-11-21] MEDS: POLYETHYLENE GLYCOL 3350 17 GM PACKET PO SCH (10:02)
[2018-11-21] MEDS ORDERED: cefTRIAXone 2 GM in DEXTROSE 5% IN WATER 50 ML IV SCH (10:15)
--- NOTE | 2018-11-21 10:20 | Discharge Summary ---
Medical - DS: Prov Patient information: Note initiated : 11/21/18 at 10:12 am Service Date, if different from initiated Date: [] Patient: Juancarlos Kenney 53 y/o M admitted on 11/18/18 for Lt Toe Pain. Chief Complaint: [] Date of admission: 11/18/18 14:44 Discharge date: 11/21/18 Primary care physician: KADE Guerrero Consults: 11/18/18 Consult to Physician [CONS] Stat Comment: Consulting Provider: Cameron Piper Reason For Exam: Physician to Consult 11/18/18 14:47 Consult to Physician [CONS] Stat Comment: Consulting Provider: Luisito Valderrama Reason For Exam: Physician to Consult Consult to Physician [CONS] Stat Comment: Consulting Provider: Scott Mancera Reason For Exam: Physician to Consult Discharging clinician: Cameron Piper Medical - DS: Meds - Discharge Medications Active and Home Medications: Home Medications Ibuprofen [Motrin] 800 mg PO TIDP PRN 05/28/15 [History Confirmed 11/18/18 Last Taken Unknown] SUMAtriptan SUCCINATE [Imitrex] 100 mg PO PRN PRN 05/28/15 [History Confirmed 11/18/18 Last Taken Unknown] albuterol sulfate HFA 90 mcg/actuation aerosol inhaler 2 puff INHALATION Q4HP PRN g 10/29/15 [History Confirmed 11/18/18 Last Taken Unknown] diclofenac 1 % topical gel 2 g TOPICAL QIDP PRN 10/29/15 [History Confirmed 11/18/18 Last Taken Unknown] ipratropium-albuterol 0.5 mg-3 mg(2.5 mg base)/3 mL nebulization soln 3 ml INHALATION Q8HP PRN 10/29/15 [History Confirmed 11/18/18 Last Taken Unknown] polyethylene glycol 3350 17 gram/dose oral powder 17 g PO BID 10/29/15 [History Confirmed 11/18/18 Last Taken 11/17/18] zolpidem 10 mg tablet 10 mg PO PRN PRN 10/29/15 [History Confirmed 11/18/18 Last Taken Unknown] bupropion HCl 75 mg tablet 75 mg PO DAILY tab 09/23/18 [History Confirmed 11/18/18 Last Taken Unknown] hydrocodone 10 mg-acetaminophen 325 mg tablet 1 - 2 tab PO QID PRN tab 09/23/18 [History Confirmed 11/18/18 Last Taken Unknown] nortriptyline 10 mg capsule 40 mg PO QHS cap 09/23/18 [History Confirmed 11/18/18 Last Taken 11/17/18] omeprazole 40 mg capsule,delayed release 40 mg PO BID cap 09/23/18 [History Confirmed 11/18/18 Last Taken 11/18/18] Acyclovir [Zovirax] 1 tab PO BID 11/18/18 [History Confirmed 11/18/18 Last Taken Unknown] Amoxicillin 500 mg PO TID 11/18/18 [History Confirmed 11/18/18 Last Taken 11/18/18] Fluticasone Hfa 220Mcg [Flovent Hfa 220Mcg] 1 puff INH BID 11/18/18 [History Confirmed 11/18/18 Last Taken Unknown] Fluticasone Hfa 220Mcg [Flovent Hfa 220Mcg] 3 puff PO BID 11/18/18 [History Confirmed 11/18/18 Last Taken Unknown] Fluticasone/Salmeterol [Advair 500-50 Diskus] 1 puff INH BID 11/18/18 [History Confirmed 11/18/18 Last Taken Unknown] metFORMIN 500 mg PO DAILY 11/18/18 [History Confirmed 11/18/18 Last Taken Unknown] Medical - DS: Hosp Hospital course: Mr. Kenney is a 53 year old M with history of trauma to the left to status post repair and hardware placement in April last year. Since the time of that surgery the patient notes she has had some trouble with that toe. He was seen in the emergency room on 05 November last month where he had presented with evidence of cellulitis, possible abscess, pain and swelling in the toe. Cultures sent from the fluid was MSSA staph. CT scan was done at that time which shows septic arthritis and acute osteomyelitis. Patient was being treated with oral antibiotics, By his retail equipment associate,Sourav Alcantara as per the note in the ED. Patient was later referred to the wound care clinic here at [facility]. Was seen by the physician and then referred to the emergency room for further evaluation. It seems that the patient's foot has progressively been getting worse swelling has worsened and there has been worsening, persistent pain, and t herefore the patient was referred to the ED given that he has a history of CT showing septic arthritis. The patient denies any fever or chills, denies any headache chest pain shortness of breath he does have some shoulder pain on the left side, denies any nausea, has chronic bloating of his abdomen no diarrhea vomiting denies any blood in the urine, but does have increased frequency of urination, On presentation to the ED patient is afebrile, hemodynamically stable labs are all stable no white count no fever no evidence of any systemic infection 11/19 Pt seen examined no acute issues reported microbiology pending pt has low esr and crp s/p surgery day 1 awaiting ID and Podiatry clearance for discharge. 11/20 pt seen examined, no acute issues, got his home cpap slept well Cleared for discharge from ID and podiatry Plan to PICC today, anticipate d/c tomorrow pt not sure if he can use a CADD Pump, will have pharmacy review with him. alternative is rochepin as per ID 11/21 Pt seen examined, no acute complaints or issues, tolerating po diet well stable for discharge, PICC in place refused CADD pump, will d/c on IV rocephin2 gms q24 hrs In Summary A 53-year-old gentleman with trauma to the left toe presents to the hospital with swelling and pain, patient had CT done recently which showed the patient had osteomyelitis and septic arthritis. Evaluated by podiatry as well as infe ctious disease, patient had removal of hardware and debridement of the joint. The patient will be treated with IV antibiotics for total of 4-6 weeks as per infectious disease. PICC line has been placed patient did not wish to have a CAD pump, he will be discharged on IV Rocephin. He will get labs done as per infectious disease recommendations. Discharge diagnosis: acute osteomyelitis/ septic arthritis. - Time Spent with Patient Total time spent providing and/or coordinating discharge services: Greater than 30 minutes Medical - DS: Exam - Constitutional Vitals: Vital Signs Temp Pulse Resp BP BP Pulse Ox 11/21/18 07:10 98.5 F 16 156/70 96 11/21/18 04:20 97.3 F 80 16 134/82 97 11/20/18 23:10 99.4 F H 78 16 140/76 95 11/20/18 19:00 97.6 F 89 16 150/80 94 11/20/18 16:00 97.8 F 20 141/77 96 11/20/18 12:00 97.9 F 16 136/75 94 Intake and Output 11/20/18 11/21/18 11/21/18 20:59 05:59 13:59 Intake Total 480 Output Total 275 Balance 205 Intake: Oral 480 Output: Void Amount 275 Other: Meal Breakfast Percent of Meal Consumed 100% Feeding Ability Urine Appearance Clear Urine Color Straw Weight Additional comments: Constitutional; Afebrile, cooperative, alert, not in distress. Respiratory system: Air Entry equal on both sides, No crackles or wheezing, no rhonchi. CVS- Rate rhythm regular, S1,S2 heard, no gallop, no rub. Abdomen- Soft nontender abdomen, no organomegaly, no tenderness, no guarding or rigidity, BECK TENDER- AOOx3, moving all extremities, no gross focal deficit noted. Medical - DS: Data Labs on day of discharge: Labs from last 24 hours 11/21/18 06:41 Vancomycin Trough 4.2 Preliminary micro results at discharge 11/18/18 11:10 Blood Culture - Preliminary Blood 11/18/18 10:59 Blood Culture - Preliminary Blood 11/18/18 18:00 Anaerobic Culture - Preliminary Toe - First Wound Culture - Preliminary Staphylococcus aureus Medical - DS: A/P - Patient/Caregiver Discharge Instructions Activity: increase activity as tolerated Diet: Regular Diet Additional Instructions: : Please check your labs weekly, and follow up with ID clinic in 4 weeks Follow up with Podiatry clinic Dr Valderrama early next week Follow up with Infectious clinic in 4 weeks Go to the ER if worsening symptoms, chest pain, fever or any other acute concerns. - Follow up Plan Follow up with: Elvis Marti ARNP [Primary Care Provider] - Luisito Valderrama DPM [Physician] - Scott Mancera MD [Physician] - Disposition: Home, Self-Care Prognosis: Fair Rehab Potential: Fair I certify that the patient requires SNF services: No Overall status at discharge: patient is progressing back to baseline Medical - DS: Qual - VTE Deep Vein Thrombosis/Pulmonary Embolism Present on Admission: No
[2018-11-21] MEDS: oxyCODONE HCL 5 MG TABLET PO PRN (10:54)
[2018-11-21] MEDS: 0.9 % SODIUM CHLORIDE 10 ML SYRINGE IV SCH (13:56)
== END 2018-11-21 15:03 | disposition home or self-care (01) | DRG 496 ==
LOC: ED 10:39 → MEDSUR 14:44
PROVIDERS: ADMIT Internal Medicine; ATTEND Internal Medicine